=== PATIENT | male | born 1965 | race Caucasian/White ===

== ENCOUNTER 2019-02-02 02:12 | Emergency (ER) | payer MEDICAID, MEDICARE ==
[~2019-02-02] VITALS: Ht 167.6 cm; Wt 99.8 kg
[~2019-02-02 02:12] MED LIST: BACTRIM-DS1 EA ORAL; BENADRYL; CEPHALEXIN500 MG ORAL; CYCLOBENZAPRINE10 MG ORAL; DEPAKOTE PO; IBUPROFEN600 MG ORAL; NORCO 5-325 TA1 EACH ORAL; RESPERIDOL PO; TYLENOL EXTRA500 MG ORAL; VICODIN 5-5001 EACH PO
--- NOTE | 2019-02-02 02:20 | NUR ---
ED Nurse Note: PT WALKED IN TO ED FOR C/O PAIN AND BRUISE TO RIGHT UPPER ARM AREA. PT DENIES ANY TRAUMA.
[2019-02-02 02:21] VITALS: BP 158/76
--- NOTE | 2019-02-02 02:56 | NUR ---
ED Nurse Note: PT WALKED OUT WITHOUT BEING SEEN. ERMD AWARE
== END 2019-02-02 02:50 | disposition left against medical advice (07) ==
LOC: EMR 02:40
DX: Z53.21 Procedure and treatment not carried out due to patient leaving prior to being seen by health care provider (principal)

== ENCOUNTER 2019-02-15 22:27 | Emergency (ER) | payer MEDICAID ==
[~2019-02-15] VITALS: Ht 165.1 cm; Wt 102.1 kg
[2019-02-15 22:46] VITALS: BP 118/73
--- NOTE | 2019-02-15 22:47 | NUR ---
ED Nurse Note: Pt states he is feeling better after taking 2 pills of aspirin at home, advised pt to wait for the doctor to be seen, pt states he will just buy some ibuprofen over the counter states he will be fine. pt left w/ all belongings, ambulates w/ steady gait.
[2019-02-15 22:49] VITALS: BP 118/73
== END 2019-02-15 23:00 | disposition left against medical advice (07) ==
LOC: EMR 22:49
DX: R10.9 Unspecified abdominal pain (principal); Z53.21 Procedure and treatment not carried out due to patient leaving prior to being seen by health care provider

== ENCOUNTER 2019-09-22 10:06 | Emergency (ER) | payer MEDICAID ==
[~2019-09-22] VITALS: Ht 167.6 cm; Wt 108.9 kg
[2019-09-22 10:38] VITALS: BP 147/83
--- NOTE | 2019-09-22 10:53 | Emergency Room Report ---
History of Present Illness General Chief Complaint: Upper Extremity Injury Source: Patient Present Illness HPI 53-year-old male presents for left forearm injury. He had a trip and fall yesterday. Reports pain in the left forearm worse with palpation and movement. Denies any other injuries. He is concerned it may be broken. Allergies: Coded Allergies: No Known Allergies (Unverified , 12/22/11) COVID-19 Screening Contact w/high risk pt: No Experienced COVID-19 symptoms?: No COVID-19 Testing performed BEEHIVE KILN CHARCOAL BURNER: No Patient History Reviewed Nursing Documentation: PMH: Agreed; PSxH: Agreed Nursing Documentation-PMH Hx Cardiac Problems: No Hx Hypertension: No Hx Pacemaker: No Hx Asthma: No Hx COPD: No Hx Diabetes: No Hx Cancer: No Hx Gastrointestinal Problems: No Hx Dialysis: No Hx Neurological Problems: No - Selvin knee replacement surgry 04/2014 Hx Cerebrovascular Accident: No Hx Seizures: No Review of Systems All Other Systems: negative except mentioned in HPI Physical Exam Vital Signs Date Time Temp Pulse Resp B/P (MAP) Pulse Ox O2 Delivery O2 Flow Rate FiO2 09/22/19 10:31 98.4 90 18 147/83 (104) 96 Room Air Sp02 EP Interpretation: reviewed, normal General Appearance: well appearing, no apparent distress Head: normocephalic, atraumatic Eyes: bilateral eye PERRL, bilateral eye EOMI ENT: hearing grossly normal, moist mucus membranes Neck: full range of motion, supple Respiratory: lungs clear, normal breath sounds, no rhonchi, no respiratory distress, no retraction, no wheezing Cardiovascular #1: normal peripheral pulses, regular rate, rhythm, no murmur Gastrointestinal: non tender, soft, non-distended, no guarding Musculoskeletal: other - Left forearm with bruising noted mildly tender no obvious deformity 2+ pulses distally sensation and motor intact distally. Neurologic: alert, oriented x3, no focal defects Skin: normal color, warm/dry Medical Decision Making Diagnostic Impression: Primary Impression: Closed left forearm fracture ER Course Differential diagnosis included but not limited to forearm contusion, sprain, fracture to name a few. On exam patient in no acute distress and nontoxic- appearing. X-rays of the left forearm ordered. X-ray of the left forearm showed nondisplaced ulna fracture. Patient will be placed in a sugar tong splint. Discharged with outpatient follow-up with his primary care doctor and orthopedics and pain control. Other X-Ray Diagnostic Results Other X-Ray Diagnostic Results : X-Ray ordered: Left forearm # of Views/Limited Vs Complete: 2 View Interpretation: no dislocation, other - Left ulna fracture, nondisplaced Electronically Signed by: Denis Weston MD Last Vital Signs Date Time Temp Pulse Resp B/P (MAP) Pulse Ox O2 Delivery O2 Flow Rate FiO2 09/22/19 10:38 98.4 18 147/83 96 Room Air 09/22/19 10:31 90 Status: improved Disposition: HOME, SELF-CARE Condition: Stable Denis Weston M.D. Sep 22, 2019 10:53
[2019-09-22] MEDS ORDERED: NORCO 5-325 TA1 EAC1 ORAL (11:53)
[2019-09-22] MEDS ORDERED: IBUPROFEN600 M1 ORAL (11:53)
[2019-09-22 12:20] VITALS: BP 147/83
--- NOTE | 2019-09-22 13:56 | Diagnostic Imaging Report ---
INDICATION: Pain TECHNIQUE: Multiple views of the left forearm were obtained COMPARISON: None FINDINGS: There is an acute fracture of the distal ulnar diaphysis, with incomplete cortical breach. There is diffuse soft tissue swelling around the forearm. Spaces are maintained. IMPRESSION: Acute nondisplaced distal ulnar diaphyseal fracture.
== END 2019-09-22 12:20 | disposition home or self-care (01) ==
LOC: EMR 11:24
DX: S52.602A Unspecified fracture of lower end of left ulna, initial encounter for closed fracture (principal); W01.0XXA Fall on same level from slipping, tripping and stumbling without subsequent striking against object, initial encounter; Y92.9 Unspecified place or not applicable; Z96.653 Presence of artificial knee joint, bilateral
CPT/HCPCS: 73090; Z7502; 99283

== ENCOUNTER 2019-12-28 17:07 | Emergency (ER) | payer MEDICAID ==
[~2019-12-28] VITALS: Ht 167.6 cm; Wt 108.9 kg
[~2019-12-28 17:07] MED LIST changes: +IBUPROFEN600 M1 ORAL; +NORCO 5-325 TA1 EAC1 ORAL
[2019-12-28 17:29] VITALS: BP 143/89
--- NOTE | 2019-12-28 17:29 | NUR ---
ED Nurse Note: Patient walked in to ED from home c/o left side gluteal pain x1 month. Denies fall, injury or trauma to the area. AAOx4, verbally responsive. No SOB. ERPA at bedside.
--- NOTE | 2019-12-28 17:53 | Emergency Room Report ---
History of Present Illness General Chief Complaint: Pain Source: Medical Record Present Illness HPI 53 YO male with PMH of bipolar presents today with pain in his left buttocks. Duration, one month. Quality is throbbing. Pt states pain occasionally radiates to the groin area however it is mostly located in the buttock region. Pain does not radiate down his leg. Pt states he has tried smoking marijuana and that has made the pain better. He also states pain is worse with movement but relieves with rest. Denies back pain. Denies any bowel or bladder incontinence. Denies any numbness or tingling. Denies saddle anesthesia. Denies testicular pain. Denies abdominal pain. Allergies: Coded Allergies: No Known Allergies (Unverified , 12/22/11) COVID-19 Screening Contact w/high risk pt: No Experienced COVID-19 symptoms?: No COVID-19 Testing performed GROUP BURNER MACHINE: Yes COVID-19 Screening: Negative COVID-19 COVID-19 Testing Source: 2 months ago Patient History Past Medical History: other - bipolar Past Surgical History: other - b/l knee surgeries Social History: Denies: smoking - smokes cigarettes, alcohol use - occasional, drug use - smokes marijuana Nursing Documentation-PMH Past Medical History: No History, Except For Hx Cardiac Problems: No Hx Hypertension: No Hx Pacemaker: No Hx Asthma: No Hx COPD: No Hx Diabetes: No Hx Cancer: No Hx Gastrointestinal Problems: No Hx Dialysis: No Hx Neurological Problems: No - Selvin knee replacement surgry 04/2014 Hx Cerebrovascular Accident: No Hx Seizures: No Review of Systems All Other Systems: negative except mentioned in HPI Physical Exam Vital Signs Date Time Temp Pulse Resp B/P (MAP) Pulse Ox O2 Delivery O2 Flow Rate FiO2 12/28/19 17:14 99.7 98 20 143/89 (107) 95 Room Air Sp02 EP Interpretation: reviewed, normal General Appearance: normal inspection, well appearing, no apparent distress, GCS 15 Eyes: bilateral eye normal inspection Respiratory: normal inspection, lungs clear, no rhonchi, no wheezing Cardiovascular #1: normal inspection, regular rate, rhythm Gastrointestinal: normal inspection, non tender, no mass, no hernia Musculoskeletal: back normal, normal range of motion - pain in gluteal area on movement of the left hip, no hip tenderness, no calf tenderness, Angel's Sign negative, no lower extremity edema, tender - to gluteus muscle, other - no midline tenderness Neurologic: motor strength/tone normal Psychiatric: normal inspection, no suicidal/homicidal ideation Skin: normal inspection, warm/dry Medical Decision Making PA Attestation Dr. Levi Is my supervising Physician whom patient management has been discussed with. Diagnostic Impression: Primary Impression: Muscle strain ER Course Pt. presents to the ED c/o buttock pain Ddx considered but are not limited to muscle strain, sciatica, cauda equina, ,malignant process, hernia Vital signs: are WNL, pt. is afebrile H&PE are most consistent with muscle strain most likely in the left gluteal region. Pt had no bowel or bladder incontinence, no saddle anesthesia. No back pain, do not suspect caudia equina syndrome, epidural abscess or malignant disease at this time. No tenderness to abdominal area, no hernia's present. He denies any testicular pain. Denies paresthesias or numbness. No evidence of trauma or injury. Full ROM of left hip joint. On physical exam patient was able to elicit the pain on movement of the gluteal muscle, however he states the pain was minimal. ORDERS: none required at this time, the diagnosis is clinical ED INTERVENTIONS: None required at this time. DISCHARGE: Discussed muscle strain education. Recommended heat and rest. Discussed stretching options and advised pt to f/u with his PCP for referral to physical therapy. Strict return precautions given. At this time pt. is stable for d/c to home. Will provide printed patient care instructions, and any necessary prescriptions. Care plan and follow up instructions have been discussed with the patient prior to discharge. Last Vital Signs Date Time Temp Pulse Resp B/P (MAP) Pulse Ox O2 Delivery O2 Flow Rate FiO2 12/28/19 17:29 99.7 98 20 143/89 95 Room Air Status: unchanged Disposition: HOME, SELF-CARE Condition: Stable Scripts Ibuprofen* (MOTRIN*) 600 Mg Tablet 600 MG ORAL Q8HR PRN, #30 TAB 0 Refills Prov: Deepika Mims PA-C 12/28/19 Acetaminophen* (TYLENOL EXTRA STRENGTH*) 500 Mg Tablet 500 MG ORAL Q8H PRN, #30 TAB 0 Refills Prov: Deepika Mims PA-C 12/28/19 Referrals: NON PHYSICIAN (PCP) Dannielle De Oliveira [facility] Patient Instructions: Muscle Strain, [id number] Additional Instructions: Take medications as directed. You can find stretches on the internet for gluteus muscles. Rest and use heat on the area. Follow up with a Primary Care Provider in 3-5 days, even if your symptoms have resolved. Return sooner to ED if new symptoms occur, or current symptoms become worse. Please note that this Emergency Department Report was dictated using [employer] helper technology software, occasionally this can lead to erroneous entry secondary to interpretation by the dictation equipment. Deepika Mims PA-C Dec 28, 2019 17:53
[2019-12-28] MEDS ORDERED: IBUPROFEN600 M1 ORAL (17:56)
[2019-12-28] MEDS ORDERED: TYLENOL EXTRA500 MG ORAL (17:56)
[2019-12-28 18:03] VITALS: BP 143/89
--- NOTE | 2019-12-28 18:03 | NUR ---
ED Nurse Note: Pt cleared by ERPAr for discharge. DC instructions/prescription was given and explained to pt and verbalized understanding of teachings. All medical deviecs such as ID band removed. Pt is AAO x4, ambulatory and left with all personal belongings.
== END 2019-12-28 18:03 | disposition home or self-care (01) ==
LOC: EMR 17:31
DX: S76.912A Strain of unspecified muscles, fascia and tendons at thigh level, left thigh, initial encounter (principal); X58.XXXA Exposure to other specified factors, initial encounter; Y93.9 Activity, unspecified; Y92.9 Unspecified place or not applicable; Z96.653 Presence of artificial knee joint, bilateral
CPT/HCPCS: 99282

== ENCOUNTER 2020-02-04 22:16 | Emergency (ER) | payer MEDICAID, MEDICARE ==
[~2020-02-04] VITALS: Ht 177.8 cm; Wt 108.9 kg
--- NOTE | 2020-02-04 22:25 | NUR ---
ED Nurse Note: pt SARANYA BERNAL RA 62 from home for a behvioral complaint. per EMS, [employer] were at pt's house for medical clearance but he began yellign at and becoming agressive with his mother who tried to give him unk medications. [employer] are placing pt on a hold for danger to others. [employer] report pt admitted to taking meth RELATIONS SPECIALIST but pt denies this, he states that he only does nicotine. pt denies SI/HI, he denies auditory or visual hallucinations. pt is rambling, verbally abusive to staff and police but follows commands and answers questions when asked. pt denies any pain at this time. no acute distress is noted
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
[2020-02-04] MEDS ORDERED: LORazepam Inj 2mg/ml 1ml IM ONE (22:30)
[2020-02-04] MEDS ORDERED: Haloperidol 5mg/ml Inj IM ONE (22:30)
--- NOTE | 2020-02-04 22:36 | NUR ---
BELONGINGS PLACED IN LOCKER #3
[2020-02-04 22:41] VITALS: BP 142/90
[2020-02-04 22:48] LABS: BASOPHILS % (AUTO) 0.9 % (0.0-2.0); EOSINOPHILS % (AUTO) 0.9 % (0.0-3.0); HEMATOCRIT 40.7 % (42.0-52.0); HEMOGLOBIN 14.4 G/DL (14.2-18.0); LYMPHOCYTES % (AUTO) 25.3 % (20.0-45.0); MEAN CORPUSCULAR VOLUME 92 FL (80-99); MONOCYTES % (AUTO) 8.1 % (1.0-10.0); NEUTROPHILS % (AUTO) 64.8 % (45.0-75.0); PLATELET COUNT 247 K/UL (150-450); RED BLOOD COUNT 4.44 M/UL (4.70-6.10); RED CELL DISTRIBUTION WIDTH 13.6 % (11.6-14.8); WHITE BLOOD COUNT 9.6 K/UL (4.8-10.8)
--- NOTE | 2020-02-04 23:05 | NUR ---
ED Nurse Note: pt resting in bed, vss no ss of distress noted. will continue to monitor. safety precautions in place
[2020-02-04 23:06] LABS: ANION GAP 8 mmol/L (5-15); BLOOD UREA NITROGEN 12 mg/dL (7-18); CARBON DIOXIDE 26 MMOL/L (21-32); CHLORIDE 102 MMOL/L (98-107); CREATININE 0.8 MG/DL (0.55-1.30); POTASSIUM 4.3 MMOL/L (3.5-5.1); SODIUM 136 MMOL/L (136-145)
[2020-02-04 23:12] LABS: ALANINE AMINOTRANSFERASE 30 U/L (12-78); ALBUMIN 3.5 G/DL (3.4-5.0); ALBUMIN/GLOBULIN RATIO 0.9 (1.0-2.7); ALKALINE PHOSPHATASE 119 U/L (46-116); ASPARTATE AMINO TRANSFERASE 26 U/L (15-37); BILIRUBIN,TOTAL 0.2 MG/DL (0.2-1.0)
[2020-02-05] VITALS (10 sets, daily range): BP systolic 131–141; BP diastolic 70–83
--- NOTE | 2020-02-05 00:12 | NUR ---
ED Nurse Note: pt sleeping in bed, VSS no ss of distress noted. will continue to monitor. safety precautions in place.
[2020-02-05 00:44] LABS: APPEARANCE,URINE CLEAR; BILIRUBIN, URINE NEGATIVE (NEGATIVE); COLOR,URINE PALE YELLOW; GLUCOSE, URINE (UA) NEGATIVE (NEGATIVE); KETONES,URINE NEGATIVE (NEGATIVE); LEUKOCYTE ESTERASE ,URINE NEGATIVE (NEGATIVE); NITRITE,URINE NEGATIVE (NEGATIVE); PH,URINE 6 (4.5-8.0); PROTEIN,URINE NEGATIVE (NEGATIVE); UROBILINOGEN,URINE NORMAL MG/DL (0.0-1.0)
--- NOTE | 2020-02-05 02:12 | NUR ---
ED Nurse Note: pt sleeping in bed, VSS no ss of distress noted. will continue to monitor. safety precautions in place.
--- NOTE | 2020-02-05 04:12 | NUR ---
ED Nurse Note: pt sleeping in bed, VSS no ss of distress noted. will continue to monitor. safety precautions in place.
--- NOTE | 2020-02-05 06:10 | NUR ---
ED Nurse Note: pt resting in bed, vss no ss of distress noted. will continue to monitor. safety precautions in place.
--- NOTE | 2020-02-05 07:15 | NUR ---
ED Nurse Note: Pt awake, alert and oriented. Denies SI/ HI. Breathing even and unlabored. Pt appears to be calm and cooperative. Suicidal precaution is in place. Will cont to monitor.
[2020-02-05] MEDS ORDERED: Haloperidol 5mg/ml Inj ONE (07:43)
[2020-02-05] MEDS ORDERED: Haloperidol 5mg/ml Inj IM ONE ×2 (07:45→18:15)
--- NOTE | 2020-02-05 09:10 | NUR ---
ED Nurse Note: Breakfast tray provided.
--- NOTE | 2020-02-05 12:35 | NUR ---
ED Nurse Note: Lunch tray provided.
--- NOTE | 2020-02-05 13:52 | NUR ---
ED Nurse Note: Dr. Gallo at bedside,
[2020-02-05] MEDS ORDERED: Haloperidol Decanoate (Long Acting) 50mg Inj IM ONE (14:00)
--- NOTE | 2020-02-05 14:47 | Emergency Room Report ---
Physical Exam Vital Signs Date Time Temp Pulse Resp B/P (MAP) Pulse Ox O2 Delivery O2 Flow Rate FiO2 02/04/20 22:12 98.8 97 18 142/90 (107) 100 Room Air Sp02 EP Interpretation: reviewed, normal Medical Decision Making Diagnostic Impression: Primary Impression: Amphetamine abuse Additional Impressions: Behavior concern Psychosis Schizophrenia Tetrahydrocannabinol (THC) dependence ER Course Care was signed out to me by Dr. Ho. Patient is on 5150 hold for danger to others and grave disability. He is acutely psychotic. Psychiatry Dr Gallo evaluated patient and recommends continued hold. Recom mend Haldol 100 mg p.o. x1 as well as risperidone 2 mg p.o. given now. Differential diagnosis includes severe depression, suicidal ideation, bipolar disorder, schizophrenia, drug abuse, drug overdose, among others. The patient denies any suicide attempt, overdose, or ingestion. They exhibit no signs of any toxic syndrome or drug / alcohol withdrawal. Labs were ordered for evaluation, and results are reassuring with no evidence of occult overdose, or severe metabolic derangement. UDS is positive for methamphetamines. The patient was observed for a period of time in the ED with serial neurologic exams. After serial neurologic exams in the emergency department, the patient remains clinically sober. They have no focal neurologic deficits and were able to ambulate with a steady gait without assistance. The patients presentation seems to be consistent psychosis. The patient appears to be stable for transfer to a psychiatric facility for further psychiatric evaluation and care, without any obvious medical etiology for their symptoms. The patient has been stabilized to the best of this emergency department's capabilities. Given the patient's medical needs, appropriate facilities for transfer were discussed and the decision has been made to transfer this patient to [facility]. The receiving facility has the capacity and capabilities to provide care for the patient. I spoke with Dr Ferro who accepted the patient in transfer. The patient has been informed and updated of their current clinical status. The patient has given verbal consent for the transfer. The risks and benefits were explained and the patient verbalizes their understanding. Last Vital Signs Date Time Temp Pulse Resp B/P (MAP) Pulse Ox O2 Delivery O2 Flow Rate FiO2 02/05/20 07:15 98.8 71 19 131/74 100 Room Air Disposition: PSYCH HOSP/UNIT - [facility] Admit Decision Time: 14:30 Condition: Stable Referrals: NOT CHOSEN IPA/,REFERRING (PCP) Virginie Sidhu D.O. Feb 05, 2020 14:47
--- NOTE | 2020-02-05 15:40 | NUR ---
REPORT GIVEN TO KARYN PATIENT IS TO BE TRANSFERD TO [facility] VIA [facility]
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
[2020-02-05] MEDS ORDERED: DiphenhydrAMINE 50mg/ml Inj IM ONE (18:15)
[2020-02-05] MEDS ORDERED: LORazepam Inj 2mg/ml 1ml IM ONE (18:15)
--- NOTE | 2020-02-05 19:00 | NUR ---
ED Nurse Note: Pt was picked up 2 EMT via tee. AAOx4, verbally responsive. No SOB, ambulatory. No skin issues. All belongings sent with the patient.
== END 2020-02-05 19:12 ==
LOC: EDBD 22:16 → EMR 22:38
DX: F15.10 Other stimulant abuse, uncomplicated (principal); F91.9 Conduct disorder, unspecified; Z20.828 Contact with and (suspected) exposure to other viral communicable diseases; F20.9 Schizophrenia, unspecified; Z96.653 Presence of artificial knee joint, bilateral
CPT/HCPCS: 36415; 80053; 80307; 81003; 85025; 96372; G0480; G0481; J1200; J1630; J1631; U0002; Z7502; 99285

== ENCOUNTER 2020-02-05 20:22 | Emergency (ER) | payer MEDICAID ==
[~2020-02-05] VITALS: Ht 177.8 cm; Wt 108.9 kg
[2020-02-05 20:42] VITALS: BP 128/85
[2020-02-05 20:46] VITALS: BP 130/80
--- NOTE | 2020-02-05 20:47 | NUR ---
patient was on 5150 hold . transferd to [facility] but when patient got to the clinic . patient became unsteady to his gate so he was send back to er . on arrival patient is sleepy . per patient just want to sleep. will wait for dr nair to see patient in the morning
--- NOTE | 2020-02-05 20:47 | NUR ---
ED Nurse Note: Belongings list done and belongings placed in locked cabinet #1
--- NOTE | 2020-02-05 20:57 | NUR ---
Note michaelone in EDM - 02/05/20 at 2057 by SOFIA ER DISCHARGE NOTE: Patient is cleared to be discharged per ERMD, pt is aox4, on room air, with stable vital signs. pt was given dc and prescription instructions, pt was able to verbalize understanding, pt id band and iv site removed without complications. pt is able to ambulate with steady gait. pt took all belongings.
--- NOTE | 2020-02-05 21:06 | NUR ---
ED Nurse Note: Pt is ambulatory in the rizvi to the restroom 50 feet with a slight limp and shuffling gait without assistance. Pt is able to walk and do ADLs independently.
--- NOTE | 2020-02-05 21:55 | Emergency Room Report ---
History of Present Illness General Chief Complaint: Suicidal Source: Medical Record Present Illness HPI 54-year-old male presents for behavioral evaluation. Patient brought from [facility] facility. Patient was just [place] [facility] [id number] for agitated aggressive behavior. Patient was sent back because he was having difficulty walking. Patient had a known existing limp however facility was not comfortable taking him with that condition. on arrival patient is lethargic. Patient was sedated prior to transfer for his aggressive behavior. No other aggravating relieving factors. 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 COVID-19 Screening: Negative COVID-19 COVID-19 Testing Source: nasal Patient History Past Medical History: none Past Surgical History: none Pertinent Family History: none Social History: Reports: drug use; Denies: smoking, alcohol use Immunizations: UTD Reviewed Nursing Documentation: PMH: Agreed; PSxH: Agreed Nursing Documentation-PMH Hx Cardiac Problems: No Hx Hypertension: No Hx Pacemaker: No Hx Asthma: No Hx COPD: No Hx Diabetes: No Hx Cancer: No Hx Gastrointestinal Problems: No Hx Dialysis: No Hx Neurological Problems: No - Selvin knee replacement surgry 04/2014 Hx Cerebrovascular Accident: No Hx Seizures: No Review of Systems All Other Systems: negative except mentioned in HPI Physical Exam Vital Signs Date Time Temp Pulse Resp B/P (MAP) Pulse Ox O2 Delivery O2 Flow Rate FiO2 02/05/20 20:29 98.1 82 16 130/80 (97) 98 Room Air Sp02 EP Interpretation: reviewed, normal General Appearance: no apparent distress, GCS 15, non-toxic, lethargic, obese Head: normocephalic, atraumatic Eyes: bilateral eye normal inspection, bilateral eye PERRL ENT: hearing grossly normal, normal pharynx, no angioedema, normal voice Neck: full range of motion, supple/symm/no masses Respiratory: chest non-tender, lungs clear, normal breath sounds, speaking full sentences Cardiovascular #1: regular rate, rhythm, no edema Cardiovascular #2: 2+ carotid (R), 2+ carotid (L), 2+ radial (R), 2+ radial (L), 2+ dorsalis pedis (R), 2+ dorsalis pedis (L) Gastrointestinal: normal bowel sounds, non tender, soft, non-distended, no guarding, no rebound Rectal: deferred Genitourinary: normal inspection, no CVA tenderness Musculoskeletal: back normal, non-tender Neurologic: other - lethargic Psychiatric: other - lethargic Reflexes: 3+ bicep (R), 3+ bicep (L), 3+ tricep (R), 3+ tricep (L), 3+ knee (R ), 3+ knee (L) Skin: no rash Lymphatic: no adenopathy Medical Decision Making Diagnostic Impression: Primary Impression: Schizophrenia Qualified Codes: F20.9 - Schizophrenia, unspecified Additional Impression: Amphetamine abuse ER Course Hospital Course 54-year-old male presents for psych evaluation. They were not able to accept him at the psych facility because of his limp Clinical course Placed on stretcher. Previous labs showed positive amphetamines. Patient was agitated and combative during my ED course. Patient had required restraint and sedation prior to his transfer. Patient had been walking with a limp due to a knee replacement. Facility was not comfortable accepting him with this pre-existing condition. Is currently resting not requiring acute intervention at this time Patient is medically cleared and pending psychiatric evaluation. i. I feel this is a highly complex case requiring extensive working including EKG/Rhythm strip, Xray/CT/US, Blood/urine lab work, repeat exams while in ED, and administration of strong opiates/narcotics for pain control, admission to hospital or close patient follow up. Last Vital Signs Date Time Temp Pulse Resp B/P (MAP) Pulse Ox O2 Delivery O2 Flow Rate FiO2 02/05/20 20:46 98.1 18 130/80 98 Room Air 02/05/20 20:44 68 Status: improved Disposition: PSYCH HOSP/UNIT Condition: Serious Referrals: NOT CHOSEN IPA/,REFERRING (PCP) Montana Vuong MD Feb 05, 2020 21:55
--- NOTE | 2020-02-05 22:09 | NUR ---
ED Nurse Note: Pt is resting with his eyes closed, breathing is even and unlabored.
[2020-02-05 22:49] VITALS: BP 135/82
--- NOTE | 2020-02-05 22:50 | NUR ---
ED Nurse Note: PT is resting witheyes closed, vitals are stable on RA as documented. Pt states that he feels very tired.
--- NOTE | 2020-02-06 01:40 | NUR ---
ED Nurse Note: Pt is breathing even and unlabored. His eyes are closed. Vitals are stable as documented.
[2020-02-06 01:41] VITALS: BP 130/75
[2020-02-06 04:34] VITALS: BP 135/80
--- NOTE | 2020-02-06 04:34 | NUR ---
ED Nurse Note: Pt has eyes closed, slow even respirations, no signs of distress noted. Vital signs are stable as documented.
--- NOTE | 2020-02-06 06:49 | NUR ---
ED Nurse Note: Pt has eyes closed and breathing is even and unlabored. Pt requested water and a blanket. Pt states he is more comfortable.
[2020-02-06 06:51] VITALS: BP 137/83
--- NOTE | 2020-02-06 07:14 | NUR ---
HAND-OFF: Report given to saroj Pineda.
[2020-02-06 07:31] VITALS: BP 132/78
--- NOTE | 2020-02-06 07:33 | NUR ---
ED Nurse Note: Patient found in room, sleeping, arousable when RN called his name. Patient is calm, denies SI/HI, denies hearing voice or seeing things that were not there. Patient awake, alert, oriented x 4. Regular, unlabored breathing noted. Ambulated to the restroom with steady gait. No facial grimacing or guarding noted. Bed in lowest position. Updated patient with plan of care.
--- NOTE | 2020-02-06 08:52 | NUR ---
ED Nurse Note: Report given to ZOYA Hernandez at [facility]. Patient is calm, resting in bed. Provided juice/sandwiches.
--- NOTE | 2020-02-06 09:56 | NUR ---
ED Nurse Note: Patient tolerated oral intake without N/V. Patient resting in bed with eyes closed.
[2020-02-06 10:07] VITALS: BP 148/86
--- NOTE | 2020-02-06 10:07 | NUR ---
ED Nurse Note: Report given to [facility] ambulance personnel [id number].
--- NOTE | 2020-02-06 10:10 | NUR ---
ED Nurse Note: Patient transferred to [facility] via [facility] ambulance personnel with all his belongings.
== END 2020-02-06 10:07 ==
LOC: EMR 20:37
DX: F20.9 Schizophrenia, unspecified (principal); F15.10 Other stimulant abuse, uncomplicated; Z96.653 Presence of artificial knee joint, bilateral
CPT/HCPCS: 99285